=== PATIENT | female | born 1970 | race American Indian/Alaskan Native ===

== ENCOUNTER 2017-05-09 09:28 | Outpatient (CLI) | payer OTHER ==
--- NOTE | 2017-05-10 08:43 | Mammography Report ---
BILATERAL DIGITAL SCREENING MAMMOGRAM WITH CAD:05/09/17 CLINICAL: Baseline screening. FINDINGS: The breasts are heterogeneously dense, which may obscure small masses.Bilateral asymmetries require additional imaging. No suspicious calcifications. IMPRESSION: Bilateral asymmetries requiring additional workup. BI-RADS CATEGORY: 0 -- Needs Additional Imaging RECOMMENDATION: Recall for bilateral spot magnification views and bilateral breast ultrasound if needed. ACR BI-RADS MAMMOGRAPHIC CODES: 0 = Needs additional imaging evaluation; 1 = Negative; 2 = Benign; 3 = Probably benign; 4 = Suspicious; 5 = Malignant; 6 = Known biopsy-proven malignancy COMMENT: 1. Dense breast tissue, i.e., adenosis, fibrocystic changes, etc., may obscure an underlying neoplasm. 2. Approximately 10% of cancers are not detected with mammography. 3. A negative mammography report should not delay biopsy if a clinically suspicious mass is present.
== END 2017-05-09 09:29 | disposition home or self-care (01) ==
LOC: SPVWC 09:28
PROVIDERS: ATTEND Advanced Practice Midwife
DX: Z12.31 Encounter for screening mammogram for malignant neoplasm of breast (principal)
CPT/HCPCS: 77067

== ENCOUNTER 2017-05-25 08:45 | Outpatient (CLI) | payer OTHER ==
--- NOTE | 2017-05-25 10:00 | Mammography Report ---
Bilateral mammogram and right breast ultrasound: Additional compression lateral imaging of the left breast shows no significant asymmetry is questioned on recent screening exam. Multiple CC compression views does reproduce the asymmetry in some projections but appears to be less discrete and others. It is not identified in the lateral projection. Ultrasound of the medial breast demonstrates that in the 2:00 location 5 cm from the nipple there are two discrete cysts and a small 18 cm from the nipple. It is unclear as to whether these correlate. No solid mass or suspicious finding noted. It is of note that the patient had trauma to the medial right breast several months back. Impression: Probably benign mammogram findings with no definite ultrasound correlation. Recommendation: Repeat mammogram in 6 months to confirm stability. The findings and recommendations have been discussed with the patient. BI-RADS CATEGORY: 3 = Probably benign ACR BI-RADS MAMMOGRAPHIC CODES: 0 = Needs additional imaging evaluation; 1 = Negative; 2 = Benign; 3 = Probably benign; 4 = Suspicious; 5 = Malignant; 6 = Known biopsy-proven malignancy COMMENT: 1. Dense breast tissue, i.e., adenosis, fibrocystic changes, etc., may obscure an underlying neoplasm. 2. Approximately 10% of cancers are not detected with mammography. 3. A negative mammography report should not delay biopsy if a clinically suspicious mass is present.
== END 2017-05-25 08:46 | disposition home or self-care (01) ==
LOC: SPVWC 08:45
PROVIDERS: ATTEND Advanced Practice Midwife
DX: N60.01 Solitary cyst of right breast (principal); N64.59 Other signs and symptoms in breast
CPT/HCPCS: 77066